=== PATIENT | male | born 1965 | race Caucasian/White ===

== ENCOUNTER 2021-02-07 08:19 | Inpatient (IN) | payer MEDICAID ==
[~2021-02-07] VITALS: Ht 185.4 cm; Wt 109.1 kg
--- NOTE | 2021-02-07 08:49 | NUR ---
MRI CONSENT COMPLETED & SIGNED
[2021-02-07] MEDS ORDERED: diazepam inj 5 MG/ML inj. IV ONE (08:55)
[2021-02-07] MEDS ORDERED: normal saline 1000ML IV soln IVB ONE (08:55)
[2021-02-07] MEDS ORDERED: proCHLORperazine 10 MG/2 ml inj IV ONE (08:55)
[2021-02-07 09:30] LABS: BASOPHILS % (AUTO) 0.3 % (0-1); EOSINOPHILS # (AUTO) 0.1 X10'3 (0-0.9); EOSINOPHILS % (AUTO) 1.1 % (0-6); HEMATOCRIT 44.6 % (42.0-52.0); HEMOGLOBIN 15.2 g/dl (14.0-17.9); LYMPHOCYTES % (AUTO) 18.6 % (21-51); MEAN CORPUSCULAR HEMOGLOBIN 30.4 PG (27.0-31.0); MEAN CORPUSCULAR VOLUME 89.3 FL (78-98); MEAN PLATELET VOLUME 9.3 FL (7.4-10.4); MONOCYTES # (AUTO) 0.6 X10'3 (0-0.9); MONOCYTES % (AUTO) 10.1 % (2-12); NEUTROPHILS # (AUTO) 3.9 X10'3 (1.8-7.7); NEUTROPHILS % (AUTO) 69.9 % (42-75); PLATELET COUNT 150 X10'3 (140-440); RED CELL DISTRIBUTION WIDTH 13.7 % (11.5-14.5); WHITE BLOOD COUNT 5.5 X10'3 (4.5-11.0)
[2021-02-07 09:34] LABS: ALANINE AMINOTRANSFERASE 33 U/L (12-78); ALBUMIN 3.8 G/DL (3.4-5.0); ALBUMIN/GLOBULIN RATIO 1.1 (1.1-1.5); ALKALINE PHOSPHATASE 57 IU/L (46-116); ANION GAP 7 (8-16); ASPARTATE AMINO TRANSFERASE 27 U/L (10-37); BILIRUBIN,TOTAL 0.7 MG/DL (0.1-1.0); BLOOD UREA NITROGEN 18 MG/DL (7-18); BUN/CREATININE RATIO 18.8 (5.4-32.0); CALCIUM 8.6 MG/DL (8.5-10.1); CHLORIDE 108 MMOL/L (99-107); CREATININE 0.96 MG/DL (0.60-1.10); GLUCOSE 93 MG/DL (70-104); POTASSIUM 4.1 MMOL/L (3.5-5.1); SODIUM 146 MMOL/L (135-145); TOTAL CARBON DIOXIDE 30.8 MMOL/L (24-32); TOTAL PROTEIN 7.4 G/DL (6.4-8.2); eGFR 81 ML/MIN
[2021-02-07] MEDS ORDERED: NO HOME MEDS (13:08)
[2021-02-07] MEDS ORDERED: acetaminophen 325mg tablet PO PRN (13:20)
[2021-02-07] MEDS ORDERED: magnesium 2GM in 50ml NS 50 ML IV PRN (13:20)
[2021-02-07] MEDS ORDERED: ondansetron/PF 4mg/2ml inj IV PRN (13:20)
[2021-02-07] MEDS ORDERED: mag hydrox/Alum hydrox/simeth 30ml oral suspension PO PRN (13:20)
[2021-02-07] MEDS ORDERED: magnesium hydroxide 30ml (MOM) UD suspension PO PRN (13:20)
[2021-02-07] MEDS ORDERED: potassium Cl 20 mEq SR tablet PO PRN ×2 (13:20)
[2021-02-07] MEDS ORDERED: magnesium 4gm in 100ml NS 100 ML IV PRN (13:20)
[2021-02-07] MEDS ORDERED: potassium Cl 40MEQ/1/2NS 520ml 520 ML IV PRN ×2 (13:20)
[2021-02-07] MEDS ORDERED: lisinopril 10 MG tablet PO ONE (13:25)
[2021-02-07] MEDS: sodium chloride 0.45% 1,000 ML IV SCH (13:37)
[2021-02-07] MEDS: K and/or MAG REPLACEMENT MC SCH (20:00)
[2021-02-07] MEDS ORDERED: enoxaparin 40mg/0.4ml syringe SQ SCH (20:00)
[2021-02-07 21:14] VITALS: BP 147/82
[2021-02-07 22:33] VITALS: BP_SYST 138; BP_SYST 139; BP_SYST 153; BP_DIAS 81; BP_DIAS 91; BP_DIAS 93
[2021-02-07 22:37] VITALS: BP 138/81
[2021-02-08] MEDS: meclizine 12.5mg tablet PO SCH ×3 (00:15→13:09)
[2021-02-08 02:00] VITALS: BP 117/61
[2021-02-08] MEDS: sodium chloride 0.45% 1,000 ML IV SCH ×2 (03:38→09:20)
[2021-02-08 06:00] VITALS: BP 120/67
--- NOTE | 2021-02-08 06:45 | NUR ---
Patient in room [facility]. I have received report from JANNETTE HACKETT and had the opportunity to ask questions and assume patient care.
--- NOTE | 2021-02-08 06:59 | NUR ---
Problems reprioritized. Patient report given, questions answered & plan of care reviewed with MARICRUZ HACKETT.
[2021-02-08 07:37] LABS: BASOPHILS % (AUTO) 0.5 % (0-1); EOSINOPHILS # (AUTO) 0.1 X10'3 (0-0.9); EOSINOPHILS % (AUTO) 2.1 % (0-6); HEMATOCRIT 40.9 % (42.0-52.0); HEMOGLOBIN 13.8 g/dl (14.0-17.9); LYMPHOCYTES # (AUTO) 1.3 X10'3 (1.1-4.8); MEAN CORPUSCULAR HEMOGLOBIN 30.3 PG (27.0-31.0); MEAN CORPUSCULAR HGB CONC 33.8 g/dL (33.0-36.5); MEAN CORPUSCULAR VOLUME 89.7 FL (78-98); MEAN PLATELET VOLUME 9.7 FL (7.4-10.4); MONOCYTES # (AUTO) 0.6 X10'3 (0-0.9); MONOCYTES % (AUTO) 11.2 % (2-12); NEUTROPHILS # (AUTO) 3.2 X10'3 (1.8-7.7); NEUTROPHILS % (AUTO) 61.2 % (42-75); PLATELET COUNT 135 X10'3 (140-440); RED BLOOD COUNT 4.57 X10'6 (4.70-6.10); RED CELL DISTRIBUTION WIDTH 13.5 % (11.5-14.5); WHITE BLOOD COUNT 5.3 X10'3 (4.5-11.0)
[2021-02-08 07:49] LABS: ALANINE AMINOTRANSFERASE 27 U/L (12-78); ALBUMIN 3.2 G/DL (3.4-5.0); ALBUMIN/GLOBULIN RATIO 1.1 (1.1-1.5); ALKALINE PHOSPHATASE 50 IU/L (46-116); ANION GAP 8 (8-16); ASPARTATE AMINO TRANSFERASE 21 U/L (10-37); BILIRUBIN,TOTAL 0.7 MG/DL (0.1-1.0); BLOOD UREA NITROGEN 21 MG/DL (7-18); BUN/CREATININE RATIO 22.3 (5.4-32.0); CALCIUM 8.4 MG/DL (8.5-10.1); CHLORIDE 109 MMOL/L (99-107); CREATININE 0.94 MG/DL (0.60-1.10); GLUCOSE 76 MG/DL (70-104); MAGNESIUM 2.1 MG/DL (1.5-2.4); SODIUM 146 MMOL/L (135-145); TOTAL CARBON DIOXIDE 29.4 MMOL/L (24-32); TOTAL PROTEIN 6.2 G/DL (6.4-8.2); eGFR 83 ML/MIN
[2021-02-08] MEDS: K and/or MAG REPLACEMENT MC SCH (08:00)
[2021-02-08 10:00] VITALS: BP 127/72
[2021-02-08 10:13] VITALS: BP_SYST 121; BP_SYST 125; BP_SYST 133; BP_DIAS 70; BP_DIAS 71; BP_DIAS 76
[2021-02-08] MEDS ORDERED: LISI10TA27 PO (14:26)
[2021-02-08] MEDS ORDERED: MECL-159 PO (14:26)
--- NOTE | 2021-02-08 15:42 | NUR ---
PT DISCHARGED IN STABLE CONDITION. LEFT FACILITY IN PRIVATE VEHICLE. IV WAS ALREADY DCd. FOLLOW UP INSTRUCTIONS GIVEN, PT STATES HE WILL CALL WEDNESDAY TO MAKE AN APPT WITH PCP. ALL QUESTIONS ANSWERED. ALL BELONGINGS IN HAND. Addendum: 02/08/21 at 1546 by Ladan Rehman RN Amended: Links added.
== END 2021-02-08 15:19 | disposition home or self-care (01) | DRG 111 ==
LOC: ER 08:19 → OBSVTOIN 13:16 → ED HOLD 13:16 → ORTHO 4S 19:02
PROVIDERS: ADMIT Family Medicine; ATTEND Family Medicine
DX: H81.13 Benign paroxysmal vertigo, bilateral (principal); E87.0 Hyperosmolality and hypernatremia; I10 Essential (primary) hypertension; R00.1 Bradycardia, unspecified
CPT/HCPCS: 36415; 70544; 70547; 70551; 80053; 83735; 84484; 85025; 87081; 93306; 93308; 96374; 97110; 97116; 97161; 97530; 99285; G0378; J0780; J1650; J3360; J7030; J8597